=== PATIENT | male | born 1945 | race Caucasian/White ===

== ENCOUNTER 2019-01-13 22:54 | Inpatient (IN) | payer MEDICARE ==
[2019-01-13] MEDS ORDERED: Succinylcholine Chloride 20 MG/ML 10 ml SYRINGE FS ONE (23:01)
[2019-01-13] MEDS ORDERED: Rocuronium Bromide 10 MG/ML (10ML VIAL) ONE (23:03)
--- NOTE | 2019-01-13 23:22 | RAD ---
XR Chest 1 View Portable HISTORY: Postintubation COMPARISON: None. FINDINGS: Heart size is within normal limits with postop sternotomy changes. Endotracheal and NG tube s appear to be in satisfactory position. Minimal linear atelectasis is seen in the lung bases. IMPRESSION: Endotracheal and NG tubes in satisfactory position.
[2019-01-13] MEDS ORDERED: Insulin Regular 300 UNITS/3 ML VIAL ONE (23:29)
[2019-01-13 23:52] LABS: Actual Bicarbonate (HCO3a) 19.3 mEq/L (22-28); Analyzer IN Cardio ER; Base Excess (BEa) -5.6 mEq/L (-2.0 to +3.0); Calcium, Ionized 1.23 mmol/L (1.12-1.30); Carboxyhemoglobin (COHb) 0.3 gm% (0.0-3.0); Hemoglobin (Hb) 8.4 g/dL (14.0-18.0); O2 Tension (PaO2) 268.9 mmHg (> 70.0); pH, Arterial 7.36 (7.35-7.45)
[2019-01-13 23:55] LABS: Puncture Site RRA
[2019-01-14] MEDS ORDERED: Sodium Bicarb 50 MEQ/50 ML VIAL ONE (00:10)
[2019-01-14] MEDS ORDERED: Dextrose 50% Abboject 50 ML SYRINGE ONE (00:10)
[2019-01-14] MEDS ORDERED: Calcium Chloride 1 GM/10 ML Abboject SYRINGE ONE (00:10)
[2019-01-14] MEDS ORDERED: EPINEPHrine 1 MG/10 ML Abboject SYRINGE ONE (00:10)
[2019-01-14 00:15] LABS: Bilirubin Negative (Negative); Blood, Urine Trace (Negative); Clarity Clear (Clear); Glucose, Urine (Dipstick) Normal (Negative); Leukocyte 75 Leu/uL (Negative); Nitrite Negative (Negative); Protein, Urine (Dipstick) Negative (Neg-Trace); RBC/HPF 0-3 HPF (0-3); Squamous Epithelial 0-3 HPF (0-3); Urobilinogen Normal mg/dL (Less than 2)
[2019-01-14 00:24] LABS: Bacteria/HPF 1+ HPF (None Seen)
[2019-01-14] MEDS ORDERED: Sodium Chloride 0.9% 1,000 ML IV SCH (01:00)
[2019-01-14 01:02] LABS: #Lymphocytes 1.5 thou/uL (1.20-3.40); #Neutrophils 8.3 thou/uL (1.40-6.50); %Basophils 0.4 % (0.0-1.0); %Eosinophils 0.1 % (0.0-10.0); %Lymphocytes 13.9 % (21.0-51.0); %Monocytes 9.4 % (0.0-10.0); %Neutrophils 76.3 % (42.0-75.0); Hemoglobin 9.3 g/dL (14.0-18.0); Platelet Count 142 thou/uL (130-400); RBC Distribution Width 14.9 % (11.5-14.5); White Blood Cell (WBC) Count 10.9 thou/uL (4.8-10.8)
[2019-01-14 01:19] LABS: INR-International Normal Ratio 1.2; PTT 36.4 SEC (22.9-36.1); Prothrombin Time 14.7 SEC (12.0-14.7)
[2019-01-14 01:21] LABS: ALT (SGPT) 10 U/L (8-55); AST (SGOT) 16 U/L (5-34); Albumin 1.7 g/dL (3.4-4.8); Alkaline Phosphatase 121 U/L (40-150); Anion Gap 13 mmol/L (10-20); BUN (Urea Nitrogen) 70 mg/dL (8.4-25.7); Bilirubin, Total 0.5 mg/dL (0.2-1.2); Calc. Creatinine Clearance 0 mL/min (70-130); Calcium 8.5 mg/dL (7.8-10.44); Carbon Dioxide 18 mmol/L (23-31); Chloride 110 mmol/L (98-107); Estimated GFR-MDRD 7; Globulin 3.9 g/dL (2.4-3.5); Glucose 162 mg/dL (83-110); Potassium 5.7 mmol/L (3.5-5.1); Protein, Total 5.6 g/dL (5.8-8.1); Sodium 135 mmol/L (136-145)
--- NOTE | 2019-01-14 01:26 | PDOC.EVN ---
Event Note - Event Note Event Note: [id number]&P [id number]
[2019-01-14 01:28] VITALS: BMI 22.6
--- NOTE | 2019-01-14 04:42 | HP ---
CHIEF COMPLAINT: Altered mental status. HISTORY OF PRESENT ILLNESS: Mr. Dillon is a male with a past medical history of chronic hepatic encephalopathy, liver failure, suspected hepatorenal syndrome, congestive heart failure, hypertension, among others, presented to the ED via transfer from [facility] for hepatic failure, suspected hepatorenal syndrome. The patient initially was taken to the ED for evaluation of altered mental status. While there, the patient's ammonia level was more than 400, lactic acid 2.4, potassium 6.9, brain imaging, no acute finding. Prior to arrival, the patient received lactulose, 500 mL bolus IV fluids, Lasix. The patient is noncompliant with his daily medications. The patient was unresponsive. The patient is intubated. In the ED, the patient was given treatment for hyperkalemia, was given insulin, dextrose 50, calcium chloride, sodium bicarb. As per family, they do not want CPR, but to continue ventilator support and medical treatment for now. PAST MEDICAL HISTORY: 1. Coronary artery disease. 2. Aortic stenosis. 3. Hepatic encephalopathy. 4. Chronic hyponatremia. 5. Suspected hepatorenal failure. 6. Liver cirrhosis. 7. Pancreatitis. PAST SURGICAL HISTORY: 1. Angioplasty. 2. Carpal tunnel syndrome. 3. Colonoscopy. 4. Coronary artery bypass graft surgery. 5. RCA aneurysm repair. 6. Paracentesis. SOCIAL HISTORY: The patient is a former smoker. No further history can be obtained at this time. ALLERGIES: NO KNOWN ALLERGIES. HOME MEDICATIONS: Unable to obtain. FAMILY HISTORY: Unknown. REVIEW OF SYSTEMS: Unable to obtain. The patient is intubated, unresponsive. PHYSICAL EXAMINATION: GENERAL: The patient is intubated, sedated. VITAL SIGNS: Blood pressure 112/84, pulse is 110, respiratory rate is 22. The patient is afebrile. HEAD AND NECK: Normocephalic, atraumatic. Neck is supple. CHEST: Fair bilateral air entry. HEART: S1, S2. Regular. ABDOMEN: Soft. Bowel sounds present. NEURO: Unresponsive. PSYCH: Unable to assess. EXTREMITIES: No clubbing, no cyanosis. SKIN: There is sloughing of skin with any light pressure and bandages. LABORATORY DATA: As mentioned above in the history of present illness, stat labs are being ordered, awaiting further results. ASSESSMENT AND PLAN: 1. Acute respiratory failure. 2. Acute metabolic encephalopathy secondary to hepatic encephalopathy. 3. Liver cirrhosis. 4. Suspected hepatorenal syndrome. 5. Acute hyperkalemia. PLAN: 1. Admit to ICU. 2. Continue full ventilator support. 3. Keep n.p.o. 4. Lactulose started in the ED, we will continue. 5. IV fluid hydration. 6. DVT prophylaxis, SCDs. 7. GI prophylaxis. 8. To consult Pulmonary/Critical Care in a.m. for critical care management/ventilator management. 9. Expected length of stay, 3 midnights or more. Job ID: [id number]
[2019-01-14 05:35] LABS: Lactic Acid 3.3 mmol/L (0.5-2.2)
[2019-01-14] MEDS ORDERED: Sodium Chloride 0.9% 500 ML IVPB SCH (06:15)
[2019-01-14] MEDS ORDERED: Furosemide 100 MG/10 ML VIAL SLOW IVP SCH (10:45)
[2019-01-14] MEDS ORDERED: methylPREDNISolone Sod Succ 40 MG VIAL IVP SCH (10:45)
[2019-01-14] MEDS ORDERED: Albumin 25% 25 GM/100 ML BOT IVPB SCH (12:00)
--- NOTE | 2019-01-14 13:30 | CON ---
DATE OF CONSULTATION: 01/14/2019 SERVICE: Pulmonary Medicine. REASON FOR CONSULTATION: ICU patient. HISTORY OF PRESENT ILLNESS: The patient is a 74-year-old white male with past medical history significant for advanced kidney disease, progressing to end- stage renal disease. He is actually supposed to have a fistula placed next week. He is yet to start hemodialysis, preparations were being made to initiate this. He also has advanced cirrhosis. He has undergone a couple of paracenteses before. He has a Child C. In his usual state of health, he has been going back and forth between comfort measures only, and being aggressive. Most recently, he was thinking that he wanted to be aggressive. That being said, about a week ago, he discontinued all of his medications directed at his liver disease and kidney problems. Ultimately, he lapsed into a coma, and was brought to the emergency department. He was not protecting his airway and was subsequently intubated. He cannot provide any additional elements of the history right now. That being said, his ammonia seems to be clearing somewhat. There were no significant overnight events. No fevers were reported. PAST MEDICAL HISTORY: 1. CKD, 5, advancing to end-stage renal disease. 2. Cirrhosis, Child C. 3. Coronary artery disease. 4. History of pancreatitis. 5. Aortic stenosis. 6. History of alcohol abuse, sober since July. 7. Tobacco abuse. PAST SURGICAL HISTORY: 1. Carpal tunnel surgery. 2. Angioplasty. 3. Colonoscopy. 4. Coronary artery bypass graft surgery. 5. Repair of RCA aneurysm. 6. Paracenteses. SOCIAL HISTORY: He is a current smoker. He has a greater than [id number] history of smoking. He was previously a significant drinker. He quit back in July. His children do not think that he does any illicit drugs. FAMILY HISTORY: Noncontributory. ALLERGIES: NO KNOWN DRUG ALLERGIES. MEDICATIONS: List of his inpatient medications were reviewed. Multiple updates were made at this time. REVIEW OF SYSTEMS: General, head, ears, eyes, nose, throat, cardiovascular, respiratory, GI, , musculoskeletal, neurologic, and skin is negative except as mentioned in the HPI. PHYSICAL EXAMINATION: VITAL SIGNS: Afebrile; pulse 93; blood pressure 90/58; respirations 14; and saturation 100%, currently on 21% FiO2 and a PEEP of 5. GENERAL: The patient is intubated. He is requiring no sedation, but encephalopathic. He does grimace appropriately with noxious stimuli, and withdraws from noxious stimuli. He spontaneously moves all of his extremities. HEENT: Normocephalic and atraumatic. Sclerae are white. Conjunctivae are pink. Oral mucosa is moist without lesions. LUNGS: Good air entry. Dependent crackles are noted. There is a prolonged expiratory phase, but I do not appreciate any wheezing. HEART: Normal rate. Regular. MUSCULOSKELETAL: No cyanosis or clubbing. There is diffuse 3 to 4+ pitting throughout. GENITOURINARY: Sims catheter in place. NEUROLOGIC: Grossly nonfocal. LABORATORY DATA: WBC 10.9, hemoglobin 9.3, and platelets 142,000. INR 1.2. PH of 7.36, pCO2 of 35, and pO2 of 268 on 60% FiO2 at that time. Creatinine 7.35, BUN 70, and potassium 5.7. Liver function studies are unremarkable. BNP 176. Troponin is negative x1. His ammonia is 273 and apparently, this is downtrending. Lactate 3.3, though his pH was previously normal. Urinalysis is unremarkable. IMAGING DATA: Chest x-ray demonstrates endotracheal tube is roughly 5 cm above the level of the mona. Enteric catheter courses midline below the level of the diaphragm. Pulmonary vascular congestion is present. No obvious infiltrates are noted. ASSESSMENT: 1. Respiratory failure secondary to inability to protect airway. 2. Metabolic encephalopathy. 3. End-stage liver disease. 4. Chronic kidney disease, 5, progressing to end-stage renal disease. 5. Medical noncompliance. DISCUSSION AND PLAN: The patient's daughter indicates to me that he likely want to be a DNAR. He does have an advance directive and this is coming up. That being said, recently, the patient has made a decision to be slightly more aggressive with his disease condition. At this point, we will see whether or not we can fix this hepatorenal syndrome, improved his encephalopathy, so that we can have him engage with Palliative Care in a very meaningful discussion. I will initiate nebulized medications as he has a fairly protracted expiratory phase. He remains significantly volume overloaded and we will work on getting some water off him. Pulmonary/Critical Care will follow. CRITICAL CARE TIME: 30 minutes. ADDENDUM: After discussing the patient's current situation and likely trajectory requiring placement in a rehab center or group home unit, the patient's 2 daughters unanimously objected to additional curative measures, as their dad would never want to be placed in a facility other than home. Both of them can individually recall conversations in which he indicated he would prefer to pass away if placement in a SNF were indicated. These conversations occurred because at one time he was encouraged to consent to placement and he refused. As such, the patient's daughters believe it is in keeping with their father's wishes to transition over to comfort care only. will be expected within 1 week if not sooner. Job ID: [id number] [facility]
[2019-01-14] MEDS ORDERED: Morphine 2 MG/ML SYRINGE SLOW IVP PRN ×3 (14:10→20:08)
[2019-01-14] MEDS ORDERED: Lorazepam 2 MG/ML VIAL SLOW IVP PRN ×2 (14:11→20:08)
[2019-01-14 20:35] VITALS: BP 113/74; TEMP 98.2
[2019-01-15] MEDS ORDERED: methylPREDNISolone Sod Succ 40 MG VIAL IVP SCH (09:00)
--- NOTE | 2019-01-16 07:14 | PDOC.EVN ---
Event Note - Event Note Event Note: Discharged to hospice. #[id number]
--- NOTE | 2019-01-16 07:42 | DIS ---
DATE OF ADMISSION: 01/14/2019 DATE OF DISCHARGE: 01/14/2019 DISCHARGE DIAGNOSES: 1. Acute metabolic and toxic encephalopathy. 2. End-stage liver disease. 3. Chronic kidney disease, stage 5. 4. Medical noncompliance. 5. Acute respiratory failure with hypoxia due to inability to protect airway. 6. Coronary artery disease. 7. Aortic stenosis. 8. Chronic alcohol abuse. 9. Tobacco abuse disorder. 10. Suspected hepatorenal syndrome. 11. Acute hyperkalemia. CONSULTS: 1. Pulmonary and Critical Care. 2. Nephrology. HOSPITAL COURSE: The patient with chronic hepatic encephalopathy, liver failure, suspected hepatorenal syndrome, congestive heart failure, and others, was admitted due to altered mental status. Due to decreased GCS, the patient was intubated. Following discussion with family, the patient was extubated terminally in line with the family's decision. Hospice consult was obtained and the patient was subsequently discharged to inpatient hospice. Job ID: [id number]
== END 2019-01-14 21:43 | disposition hospice, inpatient (51) | DRG 441 ==
LOC: ERS 22:54 → T4-A 01-14 00:44 → CCU 01-14 00:49 → T4-A 01-14 19:20
PROVIDERS: ADMIT Internal Medicine; ATTEND Neuromusculoskeletal Medicine & OMM
PROC: 5A1935Z Respiratory Ventilation, Less than 24 Consecutive Hours (ICD-10-PCS; principal; 2019-01-14)
PROC: 0BH17EZ Insertion of Endotracheal Airway into Trachea, Via Natural or Artificial Opening (ICD-10-PCS; 2019-01-14)
DX: K76.7 Hepatorenal syndrome (principal); G92 Toxic encephalopathy; J96.01 Acute respiratory failure with hypoxia; R40.2222 Coma scale, best verbal response, incomprehensible words, at arrival to emergency department; R40.2312 Coma scale, best motor response, none, at arrival to emergency department; N18.6 End stage renal disease; I13.2 Hypertensive heart and chronic kidney disease with heart failure and with stage 5 chronic kidney disease, or end stage renal disease; E87.5 Hyperkalemia; I25.10 Atherosclerotic heart disease of native coronary artery without angina pectoris; K74.60 Unspecified cirrhosis of liver; Z66 Do not resuscitate; I35.0 Nonrheumatic aortic (valve) stenosis; F10.20 Alcohol dependence, uncomplicated; F17.210 Nicotine dependence, cigarettes, uncomplicated; Z91.14 Patient's other noncompliance with medication regimen; Z95.1 Presence of aortocoronary bypass graft; Z98.890 Other specified postprocedural states; R40.2132 Coma scale, eyes open, to sound, at arrival to emergency department
CPT/HCPCS: 31500; 36415; 36416; 71045; 80053; 81003; 81015; 82140; 82805; 83605; 83880; 84484; 85025; 85610; 85730; 87040; 87077; 87086; 87186; 93005; 94002; 94003; 96361; 96374; 96375; J0171; J1815; J1940; J2920; P9047